=== PATIENT | female | born 2000 | race African-American/Black ===

== ENCOUNTER 2019-10-23 23:14 | Emergency (ER) | payer SELFPAY ==
[~2019-10-23] VITALS: Ht 167.6 cm; Wt 106.0 kg
[2019-10-24] MEDS ORDERED: IBUPROFEN 600MG TABLET PO ONE
[2019-10-24 01:19] VITALS: BP 140/69
== END 2019-10-24 01:15 | disposition home or self-care (01) ==
LOC: ER 23:14
DX: M25.532 Pain in left wrist (principal); J45.909 Unspecified asthma, uncomplicated; Z88.8 Allergy status to other drugs, medicaments and biological substances; Z98.890 Other specified postprocedural states
CPT/HCPCS: 73110; 99283